=== PATIENT | female | born 1940 | race Caucasian/White ===

== ENCOUNTER 2017-05-04 17:51 | Emergency (ER) | payer MEDICARE, OTHER ==
[~2017-05-04] VITALS: Ht 157.5 cm; Wt 56.7 kg
[2017-05-04] MEDS ORDERED: AMIN30LI27 PO ×2 (18:33)
[2017-05-04] MEDS ORDERED: ENOX60DI SQ (18:33)
[2017-05-04] MEDS ORDERED: MULT-213 PO (18:33)
[2017-05-04] MEDS ORDERED: ACET325T53 PO (18:33)
[2017-05-04] MEDS ORDERED: CARB-92 PO (18:33)
[2017-05-04] MEDS ORDERED: MEMA5TAB PO (18:33)
[2017-05-04] MEDS ORDERED: GABA-532 PO (18:33)
[2017-05-04] MEDS ORDERED: CEFI400C PO (18:33)
[2017-05-04] MEDS ORDERED: FURO-152 PO (18:33)
[2017-05-04] MEDS ORDERED: NA P133E RC (18:33)
[2017-05-04] MEDS ORDERED: ASCO-340 PO (18:33)
[2017-05-04] MEDS ORDERED: ASPI81TA31 PO (18:33)
[2017-05-04] MEDS ORDERED: BISA10SU12 RC (18:33)
[2017-05-04] MEDS ORDERED: MAGN400O6 PO (18:33)
[2017-05-04] MEDS ORDERED: EZET10TA13 PO (18:33)
[2017-05-04] MEDS ORDERED: ICOS1CAP PO (18:33)
[2017-05-04] MEDS ORDERED: DEXL60CA3 PO (18:33)
[2017-05-04] MEDS ORDERED: PHEN100C4 PO (18:33)
[2017-05-04] MEDS ORDERED: CALC-15 PO (18:33)
[2017-05-04] MEDS ORDERED: FERR324T PO (18:33)
[2017-05-04] MEDS ORDERED: ZOLP5TAB2 PO (18:33)
[2017-05-04] MEDS ORDERED: CYAN1TAB42 PO (18:33)
[2017-05-04] MEDS ORDERED: LEVE250T2 PO (18:33)
[2017-05-04] MEDS ORDERED: ROSU40TA PO (18:33)
--- NOTE | 2017-05-04 19:01 | NUR ---
PT IS IN ROOM #2A, WAITING FOR DR MAJOR EVALUATION.
--- NOTE | 2017-05-04 19:11 | NUR ---
ASSUMED CARE OF PATIENT. NO ACUTE DISTRESS NOTED. ALL PATIENT NEEDS ATTENDED AND MET. CALL LIGHT IS WITHIN REACH.
--- NOTE | 2017-05-04 22:30 | NUR ---
pATIENT CLEARED FOR D/C. CONTACTED [facility] FOR TRANSPORT.
--- NOTE | 2017-05-04 22:31 | NUR ---
tRANSPORTATION ETA [id number], CONFIRMATION # [id number]
--- NOTE | 2017-05-04 23:50 | NUR ---
sPOKE TO [facility], ETA CHANGED TO MIDNIGHT DUE TO DELAYS. AWAITING TRANSPORT ARRIVAL. PATIENT IN BED, NO ACUTE DISTRESS NOTED.
--- NOTE | 2017-05-05 00:28 | NUR ---
[id number]. PATIENT AWAKE, ALERT, ORIENTED X4. ABLE TO MAKE NEEDS KNOWN. ALL BELONGINGS TAKEN WITH PATIENT. CHART GIVEN TO SHERRI JENSEN. SKIN INTACT PER BASELINE
[2017-05-05 00:32] VITALS: BP 125/78
== END 2017-05-05 00:32 | disposition home or self-care (01) ==
LOC: ER 17:52
DX: S09.90XA Unspecified injury of head, initial encounter (principal); G20 Parkinson's disease; F32.9 Major depressive disorder, single episode, unspecified; I25.2 Old myocardial infarction; Z79.82 Long term (current) use of aspirin; Z86.718 Personal history of other venous thrombosis and embolism; Z90.49 Acquired absence of other specified parts of digestive tract; Z86.73 Personal history of transient ischemic attack (TIA), and cerebral infarction without residual deficits; W01.0XXA Fall on same level from slipping, tripping and stumbling without subsequent striking against object, initial encounter; Y92.89 Other specified places as the place of occurrence of the external cause; Y93.89 Activity, other specified; Y99.8 Other external cause status
CPT/HCPCS: 70450; 72125; A4663